=== PATIENT | female | born 1990 | race Caucasian/White ===

== ENCOUNTER → 2016-09-07 | Outpatient (CLI) | payer MEDICAID | LOC: FIMAGING 12:36 | PROVIDERS: ATTEND Advanced Practice Midwife | DX: Z09 Encounter for follow-up examination after completed treatment for conditions other than malignant neoplasm (principal); Z98.890 Other specified postprocedural states; Z97.5 Presence of (intrauterine) contraceptive device ==

== ENCOUNTER → 2018-01-26 | Outpatient (CLI) | payer MEDICAID | LOC: FIMAGING 10:05 | PROVIDERS: ATTEND Advanced Practice Midwife | DX: R10.2 Pelvic and perineal pain (principal) ==